=== PATIENT | female | born 1950 | race Caucasian/White ===

== ENCOUNTER → 2016-12-15 | Outpatient (CLI) | payer OTHER ==
[~2016-12-15] MED LIST: ASMANEX TW200 MICRO1 IH; LORAZEPAM0.5 MG PO; MONTELUKAST SOD10 MG PO
== END | disposition home or self-care (01) ==
LOC: CDC 08:54
DX: M79.645 Pain in left finger(s) (principal); R22.32 Localized swelling, mass and lump, left upper limb
CPT/HCPCS: 93000

== ENCOUNTER 2017-10-04 09:40 | Emergency (ER) | payer OTHER ==
[~2017-10-04] VITALS: Ht 147.3 cm; Wt 66.2 kg
[2017-10-04 10:39] LABS: APPEARANCE CLEAR ((CLEAR)); BILIRUBIN NEGATIVE; BLOOD NEGATIVE; COLOR YELLOW ((YELLOW)); GLUCOSE (STRIP) NEGATIVE; KETONES NEGATIVE; LEUKOCYTES NEGATIVE; NITRITE NEGATIVE; PROTEIN (STRIP) NEGATIVE; SPECIFIC GRAVITY 1.015 (1.000-1.030); UCUL ADDED? NO; UROBILINOGEN 0.2 MG/DL (0.2-1.0)
[2017-10-04 11:06] LABS: HEMATOCRIT 43.1 % (36.0-46.0); HEMOGLOBIN 14.6 G/DL (11.9-15.5); MCH 28.6 PG (29.0-34.0); MCHC 33.9 G/DL (30.0-36.0); MCV 84.5 FL (83-99); PLATELET COUNT 303 K/uL (156-360); RBC DIS.WIDTH-CV 12.9 % (11.8-14.6); RBC DIS.WIDTH-SD 39.8 % (39-53)
[2017-10-04] MEDS ORDERED: FLEXERIL10 MG PO (11:23)
[2017-10-04 11:37] LABS: ALBUMIN 4.5 G/DL (3.2-4.8); ALKALINE PHOSPHATASE 120 IU/L (3-129); ALT (GPT) 24 IU/L (3-49); AST (GOT) 19 IU/L (2-34); CHLORIDE 105 MEQ/L (99-109); CREATININE 0.7 MG/DL (0.6-1.3); GFR ESTIMATE (CALCULATED) > 59 mL/min/; GLUCOSE 114 mg/dL (70-99); POTASSIUM 4.5 MEQ/L (3.7-5.4); SODIUM 141 MEQ/L (136-147); TOTAL BILIRUBIN 0.5 MG/DL (0.0-1.0); TOTAL PROTEIN 6.7 G/DL (6.4-8.3); UREA NITROGEN (BUN) 13 mg/dL (9-23)
[2017-10-04 12:30] VITALS: BP 149/81
== END 2017-10-04 12:30 | disposition home or self-care (01) ==
LOC: EME 09:40
PROVIDERS: Emergency Medicine Emergency Medical Services
DX: M54.5 Low back pain (principal); N20.0 Calculus of kidney; K59.00 Constipation, unspecified; K75.81 Nonalcoholic steatohepatitis (NASH); J45.909 Unspecified asthma, uncomplicated; Z90.49 Acquired absence of other specified parts of digestive tract; Z87.440 Personal history of urinary (tract) infections; Z90.710 Acquired absence of both cervix and uterus; K57.30 Diverticulosis of large intestine without perforation or abscess without bleeding
CPT/HCPCS: 74176; 80053; 81003; 85027; 99281; 99283